=== PATIENT | male | born 1955 | race African-American/Black ===

== ENCOUNTER 2016-05-05 08:57 | Inpatient (IN) | payer MEDICAID, MEDICARE ==
[~2016-05-05] VITALS: Ht 185.4 cm; Wt 105.2 kg
[~2016-05-05 08:57] MED LIST: HYDR-548 PO; LISI-603 PO
[2016-05-05 09:44] LABS: BASOPHILS % (AUTO) 0.6 % (0.0-2.0); DIFF TOTAL % 100 %; EOSINOPHILS # (AUTO) 0.3 /CMM (0.0-0.7); EOSINOPHILS % (AUTO) 5.2 % (0.0-6.0); HEMATOCRIT 43 % (39-51); LYMPHOCYTES # (AUTO) 1.1 /CMM (0.8-4.8); LYMPHOCYTES % (AUTO) 20.4 % (20.0-44.0); MEAN CORPUSCULAR HEMOGLOBIN 27 PG (26.0-33.0); MEAN CORPUSCULAR HGB CONC 33 g/dl (31.0-36.0); MEAN CORPUSCULAR VOLUME 82 fL (80-96); MONOCYTES # (AUTO) 0.4 /CMM (0.1-1.30); MONOCYTES % (AUTO) 7.3 % (2.0-12.0); NEUTROPHILS # (AUTO) 3.4 /CMM (1.8-8.9); NEUTROPHILS % (AUTO) 66.5 % (43.0-81.0); PLATELET COUNT (AUTO) 285 /CMM (150-450); RED BLOOD CELL COUNT(AUTO) 5.22 MIL/uL (4.5-6.0); WHITE BLOOD COUNT (AUTO) 5.2 K/uL (4.3-11.0)
[2016-05-05 09:50] LABS: CREATININE 1.2 mg/dL (0.6-1.3); POTASSIUM 4.3 mmol/L (3.5-5.1)
[2016-05-05 09:56] LABS: ALBUMIN 3.6 g/dL (3.4-5.0); BILIRUBIN,DIRECT 0.1 mg/dL (0.0-0.2); BILIRUBIN,TOTAL 0.3 mg/dL (0.2-1.0); INDIRECT BILIRUBIN 0.2 mg/dL (0.0-1.1)
[2016-05-05 10:03] LABS: LACTIC ACID 0.7 mmol/L (0.4-2.0)
[2016-05-05] MEDS ORDERED: IOHEXOL 240MG/ML 50 ML IV ONE (11:01)
[2016-05-05] MEDS ORDERED: CT SWABBABLE VALVE TRANS SET 1 EA INFUS.SET MC ONE (11:01)
[2016-05-05] MEDS ORDERED: IV NS 0.9% 250 ML IV ONE (11:01)
[2016-05-05] MEDS ORDERED: VANCOMYCIN 1 GM in IV D5W 250 ML IV ONE (12:30)
[2016-05-05] MEDS ORDERED: PIPERACILLIN /TAZOBACTAM 3.375 G in IV D5W 50 ML IV ONE (12:30)
[2016-05-05] MEDS ORDERED: IV SET PRIMARY PUMP SET 1 EA INFUS.SET MC ONE ×2 (12:45→15:52)
[2016-05-05] MEDS ORDERED: MAG HYDROX/AL HYDROX/SIMETH 30 ML UDC PO PRN (13:00)
[2016-05-05] MEDS ORDERED: MAGNESIUM HYDROXIDE 30 ML UDC PO PRN (13:00)
[2016-05-05] MEDS ORDERED: Z GUARD REMEDY 2 OZ OINT TP PRN (13:00)
[2016-05-05] MEDS ORDERED: ONDANSETRON HCL/PF 4 MG/2 ML VIAL IVP PRN (13:00)
[2016-05-05] MEDS ORDERED: HYDROCODONE/APAP 5/325MG 1 EACH TABLET PO PRN (13:00)
[2016-05-05] MEDS ORDERED: ACETAMINOPHEN 325 MG TABLET PO PRN (13:00)
[2016-05-05] MEDS ORDERED: ZOLPIDEM TARTRATE 5 MG TABLET PO PRN (13:00)
[2016-05-05] MEDS ORDERED: IV SET PRIMARY 1 EA INFUS.SET MC ONE (13:54)
[2016-05-05] MEDS ORDERED: LORAZEPAM INJ 2 MG/ML VIAL ONE (13:54)
[2016-05-05] MEDS ORDERED: IV NS 0.9% 0 ML ONE (13:54)
[2016-05-05] MEDS ORDERED: FEE PK DOSING 1 MIN EA MC ONE (15:17)
[2016-05-05] MEDS: LISINOPRIL (20MG) 20 MG TABLET PO SCH (15:47)
[2016-05-05] MEDS: HYDROCODONE/APAP 10/325MG 1 EA TABLET PO PRN (15:48)
[2016-05-05 16:00] VITALS: BP 137/93
[2016-05-05] MEDS: IV NS 0.9% 1,000 ML IV PRN (16:06)
[2016-05-05] MEDS ORDERED: SECONDARY IV SET 1 EA INFUS.SET MC ONE (18:14)
[2016-05-05] MEDS: PIPERACILLIN /TAZOBACTAM 3.375 G in IV D5W 50 ML IV SCH (18:15)
[2016-05-05 20:00] VITALS: BP 120/77
[2016-05-06] MEDS: PIPERACILLIN /TAZOBACTAM 3.375 G in IV D5W 50 ML IV SCH ×5 (00:17→23:54)
[2016-05-06] MEDS ORDERED: SECONDARY IV SET 1 EA INFUS.SET MC ONE (01:08)
[2016-05-06] MEDS: VANCOMYCIN 1 GM in IV D5W 250 ML IV SCH ×2 (01:09→13:43)
[2016-05-06] MEDS: HYDROCODONE/APAP 10/325MG 1 EA TABLET PO PRN ×2 (05:01→16:08)
[2016-05-06] MEDS ORDERED: IV NS 0.9% 1,000 ML ONE (06:20)
[2016-05-06] MEDS: IV NS 0.9% 1,000 ML IV PRN (06:24)
[2016-05-06 08:00] VITALS: BP 145/92
[2016-05-06] MEDS: PANTOPRAZOLE 40 MG TABLET.DR PO SCH (08:17)
[2016-05-06] MEDS: DAKINS QUARTER STRENGTH (0.125%) 480 ML BOTTLE TOP SCH (08:18)
[2016-05-06] MEDS: LISINOPRIL (20MG) 20 MG TABLET PO SCH (08:18)
[2016-05-06 08:20] LABS: BASOPHILS % (AUTO) 0.2 % (0.0-2.0); DIFF TOTAL % 100 %; EOSINOPHILS # (AUTO) 0.3 /CMM (0.0-0.7); EOSINOPHILS % (AUTO) 5.9 % (0.0-6.0); HEMATOCRIT 40 % (39-51); HEMOGLOBIN 13.2 g/dL (13.5-17.5); LYMPHOCYTES # (AUTO) 1.2 /CMM (0.8-4.8); LYMPHOCYTES % (AUTO) 20.5 % (20.0-44.0); MEAN CORPUSCULAR HEMOGLOBIN 27 PG (26.0-33.0); MEAN CORPUSCULAR HGB CONC 33 g/dl (31.0-36.0); MEAN CORPUSCULAR VOLUME 82 fL (80-96); MONOCYTES # (AUTO) 0.5 /CMM (0.1-1.30); MONOCYTES % (AUTO) 8.4 % (2.0-12.0); NEUTROPHILS # (AUTO) 3.8 /CMM (1.8-8.9); PLATELET COUNT (AUTO) 286 /CMM (150-450); RED BLOOD CELL COUNT(AUTO) 4.86 MIL/uL (4.5-6.0); WHITE BLOOD COUNT (AUTO) 5.9 K/uL (4.3-11.0)
[2016-05-06 08:35] LABS: CALCIUM, SERUM 9.3 mg/dL (8.5-10.1); CREATININE 1.2 mg/dL (0.6-1.3); POTASSIUM 4.6 mmol/L (3.5-5.1)
[2016-05-06] MEDS ORDERED: LISINOPRIL (20MG) 20 MG TABLET PO SCH (09:00)
[2016-05-06] MEDS ORDERED: LORAZEPAM INJ 2 MG/ML VIAL IV ONE (12:30)
[2016-05-06 16:00] VITALS: BP 129/94
[2016-05-06] MEDS: LACTOBACILLUS RHAMNOSUS GG 1 EACH CAP.SPRINK PO SCH (16:07)
[2016-05-06 20:00] VITALS: BP 135/96
[2016-05-06 22:00] VITALS: BP 135/96
[2016-05-07] MEDS: VANCOMYCIN 1 GM in IV D5W 250 ML IV SCH ×2 (01:14→12:37)
[2016-05-07] MEDS: IV NS 0.9% 1,000 ML IV PRN (03:28)
[2016-05-07] MEDS: PIPERACILLIN /TAZOBACTAM 3.375 G in IV D5W 50 ML IV SCH ×3 (05:43→17:48)
[2016-05-07 08:00] VITALS: BP 146/91
[2016-05-07] MEDS: LACTOBACILLUS RHAMNOSUS GG 1 EACH CAP.SPRINK PO SCH ×2 (09:06→17:48)
[2016-05-07] MEDS: PANTOPRAZOLE 40 MG TABLET.DR PO SCH (09:06)
[2016-05-07] MEDS: LISINOPRIL (20MG) 20 MG TABLET PO SCH (09:06)
[2016-05-07] MEDS: HYDROCODONE/APAP 10/325MG 1 EA TABLET PO PRN ×2 (09:10→17:48)
[2016-05-07 10:00] VITALS: BP 146/91
[2016-05-07] MEDS: DAKINS QUARTER STRENGTH (0.125%) 480 ML BOTTLE TOP SCH (15:00)
[2016-05-07] MEDS ORDERED: SILVER NITRATE APPLICATOR 1 EA BOX TP ONE ×2 (17:00)
[2016-05-07 20:00] VITALS: BP 129/82
[2016-05-07 21:00] VITALS: BP 129/82
[2016-05-08] MEDS: PIPERACILLIN /TAZOBACTAM 3.375 G in IV D5W 50 ML IV SCH ×5 (00:07→23:10)
[2016-05-08] MEDS: VANCOMYCIN 1 GM in IV D5W 250 ML IV SCH ×2 (01:44→13:58)
[2016-05-08] MEDS: HYDROCODONE/APAP 10/325MG 1 EA TABLET PO PRN ×3 (05:43→17:19)
[2016-05-08] MEDS: PANTOPRAZOLE 40 MG TABLET.DR PO SCH (07:26)
[2016-05-08 07:28] LABS: CALCIUM, SERUM 9.3 mg/dL (8.5-10.1); CREATININE 1.2 mg/dL (0.6-1.3); POTASSIUM 4.5 mmol/L (3.5-5.1)
[2016-05-08 08:00] VITALS: BP 142/95
[2016-05-08] MEDS: LISINOPRIL (20MG) 20 MG TABLET PO SCH (09:15)
[2016-05-08] MEDS: LACTOBACILLUS RHAMNOSUS GG 1 EACH CAP.SPRINK PO SCH ×2 (09:15→17:18)
[2016-05-08] MEDS: DAKINS QUARTER STRENGTH (0.125%) 480 ML BOTTLE TOP SCH (09:17)
[2016-05-08 16:00] VITALS: BP 125/85
[2016-05-08 20:00] VITALS: BP 139/98
[2016-05-08 21:11] VITALS: BP 139/99
[2016-05-09] MEDS: VANCOMYCIN 1 GM in IV D5W 250 ML IV SCH ×2 (00:03→12:47)
[2016-05-09] MEDS: PIPERACILLIN /TAZOBACTAM 3.375 G in IV D5W 50 ML IV SCH ×3 (05:09→17:29)
[2016-05-09 06:49] LABS: CALCIUM, SERUM 9.7 mg/dL (8.5-10.1); CREATININE 1.2 mg/dL (0.6-1.3)
[2016-05-09] MEDS: HYDROCODONE/APAP 10/325MG 1 EA TABLET PO PRN ×2 (07:56→20:21)
[2016-05-09] MEDS: PANTOPRAZOLE 40 MG TABLET.DR PO SCH (07:57)
[2016-05-09 08:00] VITALS: BP 130/88
[2016-05-09] MEDS: LISINOPRIL (20MG) 20 MG TABLET PO SCH (08:00)
[2016-05-09] MEDS: LACTOBACILLUS RHAMNOSUS GG 1 EACH CAP.SPRINK PO SCH ×2 (08:01→17:29)
[2016-05-09] MEDS: DAKINS QUARTER STRENGTH (0.125%) 480 ML BOTTLE TOP SCH (08:01)
[2016-05-09 16:00] VITALS: BP 120/76
[2016-05-09 20:00] VITALS: BP 145/98
[2016-05-09 20:26] VITALS: BP 145/98
[2016-05-10] MEDS: PIPERACILLIN /TAZOBACTAM 3.375 G in IV D5W 50 ML IV SCH ×4 (00:12→17:54)
[2016-05-10] MEDS: VANCOMYCIN 1 GM in IV D5W 250 ML IV SCH ×2 (01:15→13:10)
[2016-05-10] MEDS: PANTOPRAZOLE 40 MG TABLET.DR PO SCH (07:46)
[2016-05-10] MEDS: LISINOPRIL (20MG) 20 MG TABLET PO SCH (07:47)
[2016-05-10] MEDS: LACTOBACILLUS RHAMNOSUS GG 1 EACH CAP.SPRINK PO SCH ×2 (07:47→17:00)
[2016-05-10] MEDS: HYDROCODONE/APAP 10/325MG 1 EA TABLET PO PRN ×2 (07:47→17:56)
[2016-05-10 08:00] VITALS: BP 129/91
[2016-05-10 08:43] LABS: CALCIUM, SERUM 9.5 mg/dL (8.5-10.1); CREATININE 1.2 mg/dL (0.6-1.3); POTASSIUM 4.5 mmol/L (3.5-5.1)
[2016-05-10] MEDS: DAKINS QUARTER STRENGTH (0.125%) 480 ML BOTTLE TOP SCH (09:08)
[2016-05-10 16:00] VITALS: BP 144/94
[2016-05-10 20:16] VITALS: BP 130/96
[2016-05-11] MEDS: HYDROCODONE/APAP 10/325MG 1 EA TABLET PO PRN ×4 (00:02→19:01)
[2016-05-11] MEDS: PIPERACILLIN /TAZOBACTAM 3.375 G in IV D5W 50 ML IV SCH ×5 (00:02→23:21)
[2016-05-11] MEDS: VANCOMYCIN 1 GM in IV D5W 250 ML IV SCH ×2 (01:03→12:58)
[2016-05-11] MEDS: PANTOPRAZOLE 40 MG TABLET.DR PO SCH (07:30)
[2016-05-11 07:55] LABS: CALCIUM, SERUM 9.4 mg/dL (8.5-10.1); CREATININE 1.2 mg/dL (0.6-1.3); POTASSIUM 4.5 mmol/L (3.5-5.1)
[2016-05-11 08:00] VITALS: BP 127/96
[2016-05-11] MEDS: LISINOPRIL (20MG) 20 MG TABLET PO SCH (08:08)
[2016-05-11] MEDS: DAKINS QUARTER STRENGTH (0.125%) 480 ML BOTTLE TOP SCH (08:08)
[2016-05-11] MEDS: LACTOBACILLUS RHAMNOSUS GG 1 EACH CAP.SPRINK PO SCH ×2 (08:08→17:45)
[2016-05-11 15:51] VITALS: BP 145/87
[2016-05-11 20:00] VITALS: BP 131/99
[2016-05-11 21:03] VITALS: BP 131/99
[2016-05-12] MEDS ORDERED: IV NS 0.9% 250 ML IV ONE (00:45)
[2016-05-12] MEDS: VANCOMYCIN 1 GM in IV D5W 250 ML IV SCH (00:49)
[2016-05-12] MEDS: HYDROCODONE/APAP 10/325MG 1 EA TABLET PO PRN ×2 (00:58→07:42)
[2016-05-12] MEDS: PIPERACILLIN /TAZOBACTAM 3.375 G in IV D5W 50 ML IV SCH (05:11)
[2016-05-12 08:00] VITALS: BP 124/81
[2016-05-12 08:12] LABS: CALCIUM, SERUM 9.7 mg/dL (8.5-10.1); CREATININE 1.2 mg/dL (0.6-1.3); POTASSIUM 4.7 mmol/L (3.5-5.1)
[2016-05-12 08:16] VITALS: BP 124/81
[2016-05-12] MEDS: PANTOPRAZOLE 40 MG TABLET.DR PO SCH (08:28)
[2016-05-12 08:29] VITALS: BP 124/81
[2016-05-12] MEDS: LACTOBACILLUS RHAMNOSUS GG 1 EACH CAP.SPRINK PO SCH (08:29)
[2016-05-12] MEDS: LISINOPRIL (20MG) 20 MG TABLET PO SCH (08:29)
[2016-05-12] MEDS: DAKINS QUARTER STRENGTH (0.125%) 480 ML BOTTLE TOP SCH (08:33)
== END 2016-05-12 12:19 | disposition home or self-care (01) | DRG 515 ==
LOC: ER 08:59 → MED 15:02
PROVIDERS: ADMIT Student in an Organized Health Care Education/Training Program; ATTEND Student in an Organized Health Care Education/Training Program
PROC: 0QB10ZZ Excision of Sacrum, Open Approach (ICD-10-PCS; principal; 2016-05-07)
DX: M46.28 Osteomyelitis of vertebra, sacral and sacrococcygeal region (principal); L89.154 Pressure ulcer of sacral region, stage 4; M84.48XA Pathological fracture, other site, initial encounter for fracture; I10 Essential (primary) hypertension; M84.48XS Pathological fracture, other site, sequela; M47.9 Spondylosis, unspecified; M48.00 Spinal stenosis, site unspecified; B96.1 Klebsiella pneumoniae [K. pneumoniae] as the cause of diseases classified elsewhere; B96.5 Pseudomonas (aeruginosa) (mallei) (pseudomallei) as the cause of diseases classified elsewhere; G89.29 Other chronic pain; M54.5 Low back pain; E66.9 Obesity, unspecified; I25.10 Atherosclerotic heart disease of native coronary artery without angina pectoris; Z59.0 Homelessness
CPT/HCPCS: 36415; 72132-TC; 80048-TC; 80061-TC; 80076-TC; 80202-TC; 83605-TC; 83735-TC; 85025-TC; 87040-TC; 87070-TC; 87081-TC; 87186-TC; A4606; A6253; A6402; A6403; J2060; J2543; J3370; J7030; J7050; J7060; Q9966; Z7610

== ENCOUNTER 2016-05-14 09:27 | Outpatient (CLI) | payer MEDICARE | END 2016-05-14 23:59 | disposition home health service (06) | LOC: WOU 09:27 | PROVIDERS: ATTEND Surgery | DX: L89.154 Pressure ulcer of sacral region, stage 4 (principal); Z87.891 Personal history of nicotine dependence; M46.28 Osteomyelitis of vertebra, sacral and sacrococcygeal region; Z83.3 Family history of diabetes mellitus; Z86.19 Personal history of other infectious and parasitic diseases; G89.21 Chronic pain due to trauma; M54.9 Dorsalgia, unspecified; V89.2XXS Person injured in unspecified motor-vehicle accident, traffic, sequela | CPT/HCPCS: 11044; 11047; A6402 ==

== ENCOUNTER 2016-05-20 13:18 | Outpatient (CLI) | payer MEDICARE | END 2016-05-20 23:59 | disposition home or self-care (01) | LOC: WOU 13:18 | PROVIDERS: ATTEND Specialist | DX: M86.69 Other chronic osteomyelitis, multiple sites (principal); L89.154 Pressure ulcer of sacral region, stage 4; T14.8 Other injury of unspecified body region; V03.10XS Pedestrian on foot injured in collision with car, pick-up truck or van in traffic accident, sequela; Z87.891 Personal history of nicotine dependence; Z86.19 Personal history of other infectious and parasitic diseases; I10 Essential (primary) hypertension | CPT/HCPCS: A6402; G0463; J3490 ==

== ENCOUNTER 2016-05-21 11:38 | Outpatient (CLI) | payer MEDICARE | END 2016-05-21 23:59 | disposition home or self-care (01) | LOC: WOU 11:38 | PROVIDERS: ATTEND Surgery | DX: L89.154 Pressure ulcer of sacral region, stage 4 (principal); Z87.891 Personal history of nicotine dependence; M46.28 Osteomyelitis of vertebra, sacral and sacrococcygeal region; G89.21 Chronic pain due to trauma; M54.9 Dorsalgia, unspecified; Z83.3 Family history of diabetes mellitus; Z86.19 Personal history of other infectious and parasitic diseases; V89.2XXS Person injured in unspecified motor-vehicle accident, traffic, sequela | CPT/HCPCS: 11044; 11047; 97605-TC; A6402 ==

== ENCOUNTER 2016-06-25 14:25 | Outpatient (CLI) | payer MEDICARE | END 2016-06-25 23:59 | disposition home health service (06) | LOC: WOU 14:25 | PROVIDERS: ATTEND Surgery | DX: L89.154 Pressure ulcer of sacral region, stage 4 (principal); M46.28 Osteomyelitis of vertebra, sacral and sacrococcygeal region; Z87.891 Personal history of nicotine dependence; G89.21 Chronic pain due to trauma; T14.90 Injury, unspecified; V89.2XXS Person injured in unspecified motor-vehicle accident, traffic, sequela; Z86.19 Personal history of other infectious and parasitic diseases; I10 Essential (primary) hypertension | CPT/HCPCS: 11044; 11047; A6402 ==

== ENCOUNTER 2016-07-02 14:35 | Outpatient (CLI) | payer MEDICARE | END 2016-07-02 23:59 | disposition home health service (06) | LOC: WOU 14:35 | PROVIDERS: ATTEND Surgery | DX: L89.154 Pressure ulcer of sacral region, stage 4 (principal); M46.28 Osteomyelitis of vertebra, sacral and sacrococcygeal region; Z87.891 Personal history of nicotine dependence; G89.21 Chronic pain due to trauma; T14.90 Injury, unspecified; V89.2XXS Person injured in unspecified motor-vehicle accident, traffic, sequela; Z86.19 Personal history of other infectious and parasitic diseases; I10 Essential (primary) hypertension | CPT/HCPCS: 15271; A6402; Q4131 ==

== ENCOUNTER 2016-07-09 13:23 | Outpatient (CLI) | payer MEDICARE | END 2016-07-09 23:59 | disposition home health service (06) | LOC: WOU 13:23 | PROVIDERS: ATTEND Surgery | DX: L89.154 Pressure ulcer of sacral region, stage 4 (principal); M46.28 Osteomyelitis of vertebra, sacral and sacrococcygeal region; Z87.891 Personal history of nicotine dependence; Z86.19 Personal history of other infectious and parasitic diseases | CPT/HCPCS: 15271; A6402; Q4131 ==

== ENCOUNTER 2016-07-16 13:43 | Outpatient (CLI) | payer MEDICARE | END 2016-07-16 23:59 | disposition home health service (06) | LOC: WOU 13:43 | PROVIDERS: ATTEND Surgery | DX: L89.154 Pressure ulcer of sacral region, stage 4 (principal); M46.28 Osteomyelitis of vertebra, sacral and sacrococcygeal region; Z87.891 Personal history of nicotine dependence; Z83.3 Family history of diabetes mellitus; Z86.19 Personal history of other infectious and parasitic diseases; I10 Essential (primary) hypertension; G89.21 Chronic pain due to trauma; T14.90 Injury, unspecified; V89.2XXS Person injured in unspecified motor-vehicle accident, traffic, sequela | CPT/HCPCS: 11044; A6402 ==

== ENCOUNTER → 2016-07-23 | Outpatient (CLI) | payer MEDICARE | END | disposition home health service (06) | LOC: WOU 13:00 | PROVIDERS: ATTEND Surgery | DX: L89.154 Pressure ulcer of sacral region, stage 4 (principal); M46.28 Osteomyelitis of vertebra, sacral and sacrococcygeal region; Z83.3 Family history of diabetes mellitus; Z86.19 Personal history of other infectious and parasitic diseases; T14.90 Injury, unspecified; G89.21 Chronic pain due to trauma; V89.2XXS Person injured in unspecified motor-vehicle accident, traffic, sequela; I10 Essential (primary) hypertension | CPT/HCPCS: 15271; A6402; Q4110 ==

== ENCOUNTER 2016-07-30 14:03 | Outpatient (CLI) | payer MEDICARE, MEDICAID | END 2016-07-30 23:59 | disposition home health service (06) | LOC: WOU 14:03 | PROVIDERS: ATTEND Surgery | DX: L89.154 Pressure ulcer of sacral region, stage 4 (principal); M46.28 Osteomyelitis of vertebra, sacral and sacrococcygeal region; Z83.3 Family history of diabetes mellitus; Z86.19 Personal history of other infectious and parasitic diseases; T14.90 Injury, unspecified; G89.21 Chronic pain due to trauma; V89.2XXS Person injured in unspecified motor-vehicle accident, traffic, sequela; I10 Essential (primary) hypertension | CPT/HCPCS: 11044; A6402 ==

== ENCOUNTER 2016-08-13 13:00 | Outpatient (CLI) | payer MEDICARE, MEDICAID | END 2016-08-13 23:59 | disposition home health service (06) | LOC: WOU 13:00 | PROVIDERS: ATTEND Surgery | DX: L89.154 Pressure ulcer of sacral region, stage 4 (principal); M46.28 Osteomyelitis of vertebra, sacral and sacrococcygeal region; Z87.891 Personal history of nicotine dependence; I10 Essential (primary) hypertension | CPT/HCPCS: 15271; A6402; Q4110 ==

== ENCOUNTER 2016-08-18 20:19 | Emergency (ER) | payer MEDICARE, MEDICAID ==
--- NOTE | 2016-08-18 20:57 | NUR ---
CALLED FOR TRIAGE; NO ANSWER.
--- NOTE | 2016-08-18 21:27 | NUR ---
CALLED FOR TRIAGE X5; NOT IN EITHER LOBBY
== END 2016-08-18 21:29 | disposition left against medical advice (07) ==
LOC: ER 20:19
DX: Z53.21 Procedure and treatment not carried out due to patient leaving prior to being seen by health care provider (principal)

== ENCOUNTER 2016-08-18 22:01 | Emergency (ER) | payer MEDICARE, MEDICAID ==
[~2016-08-18] VITALS: Ht 177.8 cm; Wt 90.7 kg
[2016-08-19] MEDS ORDERED: IV NS 0.9% 500 ML IV ONE (00:47)
[2016-08-19] MEDS ORDERED: ONDANSETRON HCL/PF 4 MG/2 ML VIAL ONE (00:47)
[2016-08-19] MEDS ORDERED: IV SET PRIMARY 1 EA INFUS.SET MC ONE (00:47)
[2016-08-19] MEDS ORDERED: IV NS 0.9% 500 ML BAG IV ONE (01:00)
[2016-08-19] MEDS ORDERED: ONDANSETRON HCL/PF 4 MG/2 ML VIAL IVP ONE (01:00)
--- NOTE | 2016-08-19 01:00 | NUR ---
61 YO MALE BB RA FROM HOME. PT IS ALERT X 3, C/O ABD PAIN. PT AMBULATED TO ER BED WITH STEADY AGIT, SKIN WARM AND DRY, RR EVEN AND UNLABORED. AWAITING ORDERS FROM PROVIDER
[2016-08-19 01:06] LABS: BASOPHILS # (AUTO) 0.1 /CMM (0.0-0.2); BASOPHILS % (AUTO) 0.7 % (0.0-2.0); EOSINOPHILS # (AUTO) 0.4 /CMM (0.0-0.7); EOSINOPHILS % (AUTO) 3.8 % (0.0-6.0); HEMATOCRIT 41 % (39-51); HEMOGLOBIN 13.8 g/dL (13.5-17.5); LYMPHOCYTES # (AUTO) 1.4 /CMM (0.8-4.8); LYMPHOCYTES % (AUTO) 14.8 % (20.0-44.0); MEAN CORPUSCULAR HEMOGLOBIN 28 PG (26.0-33.0); MEAN CORPUSCULAR HGB CONC 34 g/dl (31.0-36.0); MEAN CORPUSCULAR VOLUME 82 fL (80-96); MONOCYTES % (AUTO) 9.9 % (2.0-12.0); NEUTROPHILS # (AUTO) 6.8 /CMM (1.8-8.9); NEUTROPHILS % (AUTO) 70.8 % (43.0-81.0); PLATELET COUNT (AUTO) 252 /CMM (150-450); RDW COEFFICIENT OF VARIATION 14.9 (11.5-15.0); RED BLOOD CELL COUNT(AUTO) 5.02 MIL/uL (4.5-6.0); WHITE BLOOD COUNT (AUTO) 9.6 K/uL (4.3-11.0)
[2016-08-19 01:20] LABS: INR 0.92 (0.87-1.13); PROTHROMBIN TIME 9.8 SECS (9.5-12.7)
[2016-08-19 01:22] LABS: CALCIUM, SERUM 8.5 mg/dL (8.5-10.1); CARBON DIOXIDE 20 mmol/L (21-32); CHLORIDE 108 mmol/L (98-107); CREATININE 1.3 mg/dL (0.6-1.3); GLUCOSE 99 mg/dL (74-106); POTASSIUM 4.1 mmol/L (3.5-5.1); SODIUM SERUM 142 mmol/L (136-145); UREA NITROGEN, BLOOD 23 mg/dL (7-18)
[2016-08-19 01:26] LABS: ALANINE AMINOTRANSFERASE 115 U/L (12-78); ALBUMIN 3.4 g/dL (3.4-5.0); ALKALINE PHOSPHATASE 68 U/L (46-116); ASPARTATE AMINOTRANSFERASE 61 U/L (15-37); BILIRUBIN,DIRECT 0.1 mg/dL (0.0-0.2); BILIRUBIN,TOTAL 0.2 mg/dL (0.2-1.0); LIPASE 104 U/L (73-393); TOTAL PROTEIN, SERUM 8.5 g/dL (6.4-8.2); TROPONIN I < 0.017 ng/mL (0.00-0.056)
[2016-08-19 01:49] LABS: APPEARANCE,URINE CLOUDY (CLEAR); BILIRUBIN,URINE NEGATIVE (NEGATIVE); BLOOD, URINE TRACE-INTA Ery/uL (NEGATIVE); COLOR,URINE YELLOW (YELLOW); KETONES,URINE NEGATIVE (NEGATIVE); LEUKOCYTE ESTERASE ,URINE 1+ (NEGATIVE); NITRITE, URINE NEGATIVE (NEGATIVE); PH,URINE 5.5 (5.0-8.0); PROTEIN,URINE TRACE mg/dl (NEGATIVE); UGLUCOSE NEGATIVE (NEGATIVE); UROBILINOGEN,URINE 0.2 EU/dL (0.2)
[2016-08-19 01:55] LABS: BACTERIA,URINE 1+ /HPF (None Seen); SQUAMOUS EPITHELIAL CELL,UR Few /HPF (None Seen); WBC,URINE 51-80 /HPF (0-3)
[2016-08-19] MEDS ORDERED: CIPROFLOXACIN HCL 500 MG TABLET ONE (02:15)
[2016-08-19] MEDS ORDERED: METRONIDAZOLE 500 MG TABLET ONE (02:15)
[2016-08-19] MEDS ORDERED: CIPROFLOXACIN HCL 500 MG TABLET PO ONE (02:30)
[2016-08-19] MEDS ORDERED: METRONIDAZOLE 500 MG TABLET PO ONE (02:30)
[2016-08-19 02:31] VITALS: BP 154/78
--- NOTE | 2016-08-19 02:33 | NUR ---
Patient discharged to home in stable condition. Written and verbal after care instructions given. Patient verbalizes understanding of instruction.IV removed. Catheter intact and site benign. Pressure and 4x4 applied to site. No bleeding noted. PT ambulatory with a steady gait VITAL SIGNS WITHIN NORMAL LIMITS.
== END 2016-08-19 02:32 | disposition home or self-care (01) ==
LOC: ER 22:03
DX: N39.0 Urinary tract infection, site not specified (principal); K52.9 Noninfective gastroenteritis and colitis, unspecified; I10 Essential (primary) hypertension; K40.90 Unilateral inguinal hernia, without obstruction or gangrene, not specified as recurrent; Z98.890 Other specified postprocedural states
CPT/HCPCS: 36415; 80048-TC; 80076-TC; 81000-TC; 83690-TC; 84484-TC; 85025-TC; 85730-TC; 87086-TC; A4606; J2405; J7040; Z7610

== ENCOUNTER 2016-08-19 10:18 | Emergency (ER) | payer MEDICARE, MEDICAID ==
[~2016-08-19] VITALS: Ht 185.4 cm; Wt 103.0 kg
--- NOTE | 2016-08-19 10:32 | NUR ---
PT AMBULATORY TO ER BED 04. C/O LUQ ABDOMINAL PAIN W/ BLOOD IN STOOL NOTED SINCE THIS AM. CALLED PRIMARY AND WAS ADVISED TO GO TO ER. WAS SEEN HERE LAST NIGHT AND DIAGNOSED W/ UTI. AWAITING MD SEGURA.
--- NOTE | 2016-08-19 10:34 | NUR ---
DR SANTOS AT BEDSIDE FOR EVAL.
[2016-08-19] MEDS ORDERED: HYDROCODONE/APAP 5/325MG 1 EACH TABLET ONE (10:36)
--- NOTE | 2016-08-19 10:40 | NUR ---
[employer] AT BEDSIDE FOR BLOOD DRAW.
[2016-08-19 10:47] LABS: BASOPHILS # (AUTO) 0.1 /CMM (0.0-0.2); BASOPHILS % (AUTO) 1.4 % (0.0-2.0); EOSINOPHILS # (AUTO) 0.3 /CMM (0.0-0.7); EOSINOPHILS % (AUTO) 4.1 % (0.0-6.0); HEMATOCRIT 40 % (39-51); HEMOGLOBIN 13.1 g/dL (13.5-17.5); LYMPHOCYTES # (AUTO) 1.1 /CMM (0.8-4.8); LYMPHOCYTES % (AUTO) 15.4 % (20.0-44.0); MEAN CORPUSCULAR HEMOGLOBIN 27 PG (26.0-33.0); MEAN CORPUSCULAR HGB CONC 33 g/dl (31.0-36.0); MEAN CORPUSCULAR VOLUME 82 fL (80-96); MONOCYTES # (AUTO) 0.8 /CMM (0.1-1.30); MONOCYTES % (AUTO) 11.1 % (2.0-12.0); NEUTROPHILS # (AUTO) 5.2 /CMM (1.8-8.9); PLATELET COUNT (AUTO) 241 /CMM (150-450); RDW COEFFICIENT OF VARIATION 13.6 (11.5-15.0); RED BLOOD CELL COUNT(AUTO) 4.86 MIL/uL (4.5-6.0); WHITE BLOOD COUNT (AUTO) 7.5 K/uL (4.3-11.0)
[2016-08-19] MEDS ORDERED: HYDROCODONE/APAP 5/325MG 1 EACH TABLET PO ONE (11:00)
--- NOTE | 2016-08-19 11:15 | NUR ---
Patient discharged to home in stable condition. Written and verbal after care instructions given. Patient verbalizes understanding of instruction.
[2016-08-19 11:16] VITALS: BP 142/99
== END 2016-08-19 11:17 | disposition home or self-care (01) ==
LOC: ER 10:20
DX: K52.89 Other specified noninfective gastroenteritis and colitis (principal); N39.0 Urinary tract infection, site not specified; I10 Essential (primary) hypertension
CPT/HCPCS: 36415; 85025; 99283; A4606; Z7610

== ENCOUNTER 2016-09-10 14:35 | Outpatient (CLI) | payer MEDICARE, MEDICAID | END 2016-09-10 23:59 | disposition home health service (06) | LOC: WOU 14:35 | PROVIDERS: ATTEND Surgery | DX: L89.154 Pressure ulcer of sacral region, stage 4 (principal); M46.28 Osteomyelitis of vertebra, sacral and sacrococcygeal region; Z87.891 Personal history of nicotine dependence; I10 Essential (primary) hypertension | CPT/HCPCS: 11044; A6402 ==

== ENCOUNTER 2016-09-24 13:39 | Outpatient (CLI) | payer MEDICARE, MEDICAID | END 2016-09-24 23:59 | disposition home health service (06) | LOC: WOU 13:39 | PROVIDERS: ATTEND Surgery | DX: L89.154 Pressure ulcer of sacral region, stage 4 (principal); M46.28 Osteomyelitis of vertebra, sacral and sacrococcygeal region; I10 Essential (primary) hypertension; Z86.19 Personal history of other infectious and parasitic diseases; Z87.891 Personal history of nicotine dependence; T14.90 Injury, unspecified; V03.10XS Pedestrian on foot injured in collision with car, pick-up truck or van in traffic accident, sequela | CPT/HCPCS: 15271; A6207; A6402; Q4131 ==

== ENCOUNTER 2016-10-01 14:00 | Outpatient (CLI) | payer MEDICARE, MEDICAID | END 2016-10-01 23:59 | disposition home health service (06) | LOC: WOU 14:00 | PROVIDERS: ATTEND Surgery | DX: L89.154 Pressure ulcer of sacral region, stage 4 (principal); M46.28 Osteomyelitis of vertebra, sacral and sacrococcygeal region; I10 Essential (primary) hypertension; Z86.19 Personal history of other infectious and parasitic diseases; Z87.891 Personal history of nicotine dependence; T14.90 Injury, unspecified; V03.10XS Pedestrian on foot injured in collision with car, pick-up truck or van in traffic accident, sequela; Z83.3 Family history of diabetes mellitus | CPT/HCPCS: 15271; A6402; Q4131 ==

== ENCOUNTER 2016-10-12 12:31 | Outpatient (CLI) | payer MEDICARE, MEDICAID | END 2016-10-12 23:59 | disposition home health service (06) | LOC: WOU 12:31 | PROVIDERS: ATTEND Surgery | DX: L89.154 Pressure ulcer of sacral region, stage 4 (principal); M46.28 Osteomyelitis of vertebra, sacral and sacrococcygeal region; Z83.3 Family history of diabetes mellitus; I10 Essential (primary) hypertension; Z86.19 Personal history of other infectious and parasitic diseases; Z87.891 Personal history of nicotine dependence; T14.90 Injury, unspecified; V03.10XS Pedestrian on foot injured in collision with car, pick-up truck or van in traffic accident, sequela | CPT/HCPCS: 15271; A6402 ==

== ENCOUNTER 2016-10-29 13:20 | Outpatient (CLI) | payer MEDICARE, MEDICAID | END 2016-10-29 23:59 | disposition home or self-care (01) | LOC: WOU 13:20 | PROVIDERS: ATTEND Surgery | DX: L89.154 Pressure ulcer of sacral region, stage 4 (principal); Z83.3 Family history of diabetes mellitus; M46.28 Osteomyelitis of vertebra, sacral and sacrococcygeal region; I10 Essential (primary) hypertension; Z86.19 Personal history of other infectious and parasitic diseases; Z87.891 Personal history of nicotine dependence; T14.90 Injury, unspecified; V03.10XS Pedestrian on foot injured in collision with car, pick-up truck or van in traffic accident, sequela; Z82.49 Family history of ischemic heart disease and other diseases of the circulatory system; Z79.899 Other long term (current) drug therapy | CPT/HCPCS: 15271; A6402; Q4110 ×2 ==

== ENCOUNTER 2016-10-30 11:04 | Outpatient (CLI) | payer MEDICARE, MEDICAID | END 2016-10-30 23:59 | disposition home or self-care (01) | LOC: WOU 11:04 | PROVIDERS: ATTEND Surgery | DX: L89.154 Pressure ulcer of sacral region, stage 4 (principal); M46.28 Osteomyelitis of vertebra, sacral and sacrococcygeal region; Z87.891 Personal history of nicotine dependence; Z79.899 Other long term (current) drug therapy | CPT/HCPCS: 97605-TC ==

== ENCOUNTER 2016-11-02 12:23 | Outpatient (CLI) | payer MEDICARE, MEDICAID | END 2016-11-02 23:59 | disposition home or self-care (01) | LOC: WOU 12:23 | PROVIDERS: ATTEND Surgery | DX: L89.154 Pressure ulcer of sacral region, stage 4 (principal); Z83.3 Family history of diabetes mellitus; M46.28 Osteomyelitis of vertebra, sacral and sacrococcygeal region; I10 Essential (primary) hypertension; Z86.19 Personal history of other infectious and parasitic diseases; Z87.891 Personal history of nicotine dependence; T14.90 Injury, unspecified; V03.10XS Pedestrian on foot injured in collision with car, pick-up truck or van in traffic accident, sequela; Z82.49 Family history of ischemic heart disease and other diseases of the circulatory system; Z79.899 Other long term (current) drug therapy | CPT/HCPCS: 11044; A6402 ==

== ENCOUNTER 2016-11-23 13:08 | Outpatient (CLI) | payer MEDICAID, MEDICARE | END 2016-11-23 23:59 | disposition home or self-care (01) | LOC: WOU 13:08 | PROVIDERS: ATTEND Surgery | DX: L89.154 Pressure ulcer of sacral region, stage 4 (principal); M46.28 Osteomyelitis of vertebra, sacral and sacrococcygeal region; Z87.891 Personal history of nicotine dependence; I10 Essential (primary) hypertension; Z86.19 Personal history of other infectious and parasitic diseases; T14.90 Injury, unspecified; V03.10XS Pedestrian on foot injured in collision with car, pick-up truck or van in traffic accident, sequela; Z82.49 Family history of ischemic heart disease and other diseases of the circulatory system; Z79.899 Other long term (current) drug therapy | CPT/HCPCS: 11044; A6402 ==

== ENCOUNTER 2016-12-10 14:29 | Outpatient (CLI) | payer MEDICARE | END 2016-12-10 23:59 | disposition home or self-care (01) | LOC: WOU 14:29 | PROVIDERS: ATTEND Surgery | DX: L89.154 Pressure ulcer of sacral region, stage 4 (principal); M46.28 Osteomyelitis of vertebra, sacral and sacrococcygeal region; Z87.891 Personal history of nicotine dependence; I10 Essential (primary) hypertension; Z86.19 Personal history of other infectious and parasitic diseases; T14.90 Injury, unspecified; V03.10XS Pedestrian on foot injured in collision with car, pick-up truck or van in traffic accident, sequela; Z82.49 Family history of ischemic heart disease and other diseases of the circulatory system; Z79.899 Other long term (current) drug therapy | CPT/HCPCS: 11044; A6402 ==

== ENCOUNTER 2016-12-24 12:50 | Outpatient (CLI) | payer MEDICARE, OTHER | END 2016-12-24 23:59 | disposition home or self-care (01) | LOC: WOU 12:50 | PROVIDERS: ATTEND Surgery | DX: L89.154 Pressure ulcer of sacral region, stage 4 (principal); M46.28 Osteomyelitis of vertebra, sacral and sacrococcygeal region | CPT/HCPCS: 11044; A6402 ==

== ENCOUNTER 2017-01-07 12:50 | Outpatient (CLI) | payer MEDICARE, OTHER | END 2017-01-07 23:59 | disposition home or self-care (01) | LOC: WOU 12:50 | PROVIDERS: ATTEND Surgery | DX: L89.154 Pressure ulcer of sacral region, stage 4 (principal); M46.28 Osteomyelitis of vertebra, sacral and sacrococcygeal region; I10 Essential (primary) hypertension; Z87.891 Personal history of nicotine dependence; T14.90XS Injury, unspecified, sequela; V09.9XXS Pedestrian injured in unspecified transport accident, sequela | CPT/HCPCS: 11044; A6402 ==

== ENCOUNTER 2017-02-15 12:40 | Outpatient (CLI) | payer MEDICARE, OTHER | END 2017-02-15 23:59 | disposition home or self-care (01) | LOC: WOU 12:40 | PROVIDERS: ATTEND Surgery | DX: L89.154 Pressure ulcer of sacral region, stage 4 (principal); M46.28 Osteomyelitis of vertebra, sacral and sacrococcygeal region; Z87.891 Personal history of nicotine dependence; I10 Essential (primary) hypertension; Z83.3 Family history of diabetes mellitus; Z82.49 Family history of ischemic heart disease and other diseases of the circulatory system; T14.90XS Injury, unspecified, sequela; V09.9XXS Pedestrian injured in unspecified transport accident, sequela | CPT/HCPCS: 11044; A6402 ==

== ENCOUNTER 2017-03-11 10:20 | Outpatient (CLI) | payer MEDICARE, OTHER | END 2017-03-11 23:59 | disposition home or self-care (01) | LOC: WOU 10:20 | PROVIDERS: ATTEND Surgery | DX: L89.154 Pressure ulcer of sacral region, stage 4 (principal); M46.28 Osteomyelitis of vertebra, sacral and sacrococcygeal region; I10 Essential (primary) hypertension; T14.90XS Injury, unspecified, sequela; V89.2XXS Person injured in unspecified motor-vehicle accident, traffic, sequela | CPT/HCPCS: 11044; A6402 ==

== ENCOUNTER 2017-04-29 13:00 | Outpatient (CLI) | payer MEDICARE, OTHER | END 2017-04-29 23:59 | disposition home or self-care (01) | LOC: WOU 13:00 | PROVIDERS: ATTEND Surgery | DX: L89.154 Pressure ulcer of sacral region, stage 4 (principal); M46.28 Osteomyelitis of vertebra, sacral and sacrococcygeal region; Z87.891 Personal history of nicotine dependence; I10 Essential (primary) hypertension; T14.90XS Injury, unspecified, sequela; V03.90XS Pedestrian on foot injured in collision with car, pick-up truck or van, unspecified whether traffic or nontraffic accident, sequela | CPT/HCPCS: 11044; A6402 ==

== ENCOUNTER 2017-05-20 11:09 | Outpatient (CLI) | payer MEDICARE, OTHER | END 2017-05-20 23:59 | disposition home or self-care (01) | LOC: WOU 11:09 | PROVIDERS: ATTEND Surgery | DX: L89.154 Pressure ulcer of sacral region, stage 4 (principal); Z87.891 Personal history of nicotine dependence; G89.21 Chronic pain due to trauma; T14.90XS Injury, unspecified, sequela; V49.88XS Car occupant (driver) (passenger) injured in other specified transport accidents, sequela; I10 Essential (primary) hypertension; Z79.899 Other long term (current) drug therapy; M46.28 Osteomyelitis of vertebra, sacral and sacrococcygeal region | CPT/HCPCS: 11044; A6402 ==

== ENCOUNTER 2017-12-06 13:10 | Outpatient (CLI) | payer MEDICARE, OTHER | END 2017-12-06 23:59 | disposition home or self-care (01) | LOC: WOU 13:10 | PROVIDERS: ATTEND Surgery | DX: L89.154 Pressure ulcer of sacral region, stage 4 (principal); Z87.891 Personal history of nicotine dependence; Z83.3 Family history of diabetes mellitus; I10 Essential (primary) hypertension; Z79.899 Other long term (current) drug therapy; Z86.19 Personal history of other infectious and parasitic diseases; M46.28 Osteomyelitis of vertebra, sacral and sacrococcygeal region | CPT/HCPCS: 11043; A6402; Z7610 ==